=== PATIENT | female | born 1990 | race Native Hawaiian/Other Pacific Islander ===

== ENCOUNTER 2023-04-02 20:10 | Emergency (ER) | payer OTHER ==
[~2023-04-02] VITALS: Ht 157.5 cm; Wt 75.3 kg
[2023-04-02 22:55] VITALS: BP 124/66; TEMP 98.5
== END 2023-04-02 22:55 | disposition home or self-care (01) ==
LOC: ED 20:10
DX: J18.8 Other pneumonia, unspecified organism (principal); R05.9 Cough, unspecified
CPT/HCPCS: 81000; 87502; 87635; 87651; 96372; 99283; J0696; U0003